=== PATIENT | male | born 1945 | race Caucasian/White ===

== ENCOUNTER 2022-05-05 10:41 | Inpatient (IN) ==
--- NOTE | 2022-04-07 14:12 | PAT Medication Instructions ---
Medication Instructions Date of Service April 07, 2022 Home Medications atorvastatin 80 mg tablet 80 mg PO HS calcium carbonate 600 mg-vitamin D3 5 mcg (200 unit) tablet 1 tab PO QAM cholecalciferol (vitamin D3) 25 mcg (1,000 unit) chewable tablet (Vitamin D3) 1,000 unit PO QAM donepezil 10 mg tablet 10 mg PO HS duloxetine 40 mg capsule,delayed release 80 mg PO QAM ferrous sulfate 325 mg (65 mg iron) tablet 325 mg PO BID furosemide 40 mg tablet 40 mg PO QAM lisinopril 5 mg tablet 5 mg PO QAM pantoprazole 40 mg tablet,delayed release 40 mg PO QAM prednisone 2.5 mg tablet 7.5 mg PO QAM rivaroxaban 20 mg tablet (Xarelto) 20 mg PO QAM tramadol 50 mg tablet 50 mg PO BID ASK your prescriber and surgeon rivaroxaban 20 mg tablet (Xarelto) 20 mg PO QAM DO NOT take the morning of surgery calcium carbonate 600 mg-vitamin D3 5 mcg (200 unit) tablet 1 tab PO QAM cholecalciferol (vitamin D3) 25 mcg (1,000 unit) chewable tablet (Vitamin D3) 1,000 unit PO QAM ferrous sulfate 325 mg (65 mg iron) tablet 325 mg PO BID furosemide 40 mg tablet 40 mg PO QAM lisinopril 5 mg tablet 5 mg PO QAM Take morning of surgery With a small sip of water, OTHERWISE NOTHING TO EAT OR DRINK AFTER MIDNIGHT: duloxetine 40 mg capsule,delayed release 80 mg PO QAM pantoprazole 40 mg tablet,delayed release 40 mg PO QAM prednisone 2.5 mg tablet 7.5 mg PO QAM tramadol 50 mg tablet 50 mg PO BID Take evening before surgery atorvastatin 80 mg tablet 80 mg PO HS donepezil 10 mg tablet 10 mg PO HS ferrous sulfate 325 mg (65 mg iron) tablet 325 mg PO BID tramadol 50 mg tablet 50 mg PO BID Other Notes If you have any questions please call us at [phone] or [phone] or [phone] or [phone]
--- NOTE | 2022-04-13 10:39 | Anesthesiology Consultation ---
Date of Service April 13, 2022 Assessment & Plan (1) Encounter for pre-operative examination: - PAT testing will be faxed to PCP for continuity of care and review for upcoming clearance appointment. - potential difficult intubation: s/p cervical fusion. - awaiting surgeon ordered medical clearance. - COVID screening: Per assessment on 04/13/2022: Travel screen negative, no known COVID-19 positive contacts or current COVID-19 related symptoms in past 2 weeks. Pt vaccinated. Surgeon arranging preop COVID testing, scheduled 05/03/2022. Awaiting results. Chart Review Chart Review: Pending: Refer to Additional Notes / Consult section and Patient seen in Pre Admission Testing Teaching & Discussion Pre-Anesthesia Teaching/Discussion Notes: Instructed NPO after midnight before surgery, except medications with 15 cc of water. Medication instructions provided according to the PAT guidelines. History Surgery Operation Date: 05/05/22 10:20 Proposed Procedures p L3-S1 Decompression and Fusion; Neuro Monitoring - Ronan Becerril DO Height/Weight Height: 5 ft 7 in Weight: 82.2 kg Allergies Allergy/AdvReac Type Severity Reaction Status Date / Time celecoxib [From Celebrex] AdvReac Mild bleeding Verified 04/07/22 12:17 Medications Home Medications Medication Instructions Recorded Confirmed Last Taken atorvastatin 80 mg tablet 80 mg PO HS 04/07/22 04/07/22 Unknown calcium carbonate 600 mg-vitamin 1 tab PO QAM 04/07/22 04/07/22 Unknown D3 5 mcg (200 unit) tablet cholecalciferol (vitamin D3) 25 1,000 unit PO QAM 04/07/22 04/07/22 Unknown mcg (1,000 unit) chewable tablet (Vitamin D3) donepezil 10 mg tablet 10 mg PO HS 04/07/22 04/07/22 Unknown duloxetine 40 mg capsule,delayed 80 mg PO QAM 04/07/22 04/07/22 Unknown release ferrous sulfate 325 mg (65 mg 325 mg PO BID 04/07/22 04/07/22 Unknown iron) tablet furosemide 40 mg tablet 40 mg PO QAM 04/07/22 04/07/22 Unknown lisinopril 5 mg tablet 5 mg PO QAM 04/07/22 04/07/22 Unknown pantoprazole 40 mg tablet,delayed 40 mg PO QAM 04/07/22 04/07/22 Unknown release prednisone 2.5 mg tablet 7.5 mg PO QAM 04/07/22 04/07/22 Unknown rivaroxaban 20 mg tablet (Xarelto) 20 mg PO QAM 04/07/22 04/07/22 Unknown tramadol 50 mg tablet 50 mg PO BID 04/07/22 04/07/22 Unknown Past Medical History Medical History (Updated 04/13/22 @ 10:47 by Roopa Rubi PA-C) Anemia blood transfusion 02/2022 and is getting 5 sessions of iron infusions. 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 Exercise / Class Metabolic Activity III < 4 Walking/Shop/Light housework (denies CP or SOB, ambulates with cane) Past Family History Family History (Updated 04/07/22 @ 12:37 by Klarissa Bernal) Sister Diabetes Father Colorectal cancer Past Surgical History Surgical History (Updated 04/13/22 @ 10:36 by Roopa Rubi PA-C) History of arthroplasty of left shoulder History of bilateral knee arthroplasty History of cholecystectomy History of colonoscopy History of decompression of both ulnar nerves History of open reduction and internal fixation (ORIF) procedure right lower leg History of removal of cyst tumor removed in right ear Hx of carpal tunnel repair right Hx of spinal fusion C4-C5 Hx of tooth extraction Past Anesthesia History No Hx of Anesthesia Complications and No Family Hx of Anesthesia Complications History of PONV No Hx of Motion Sickness and History of PONV (he notes significant improvement s/p cholecystectomy) Social History Smoking Status: Former smoker Do You Dip or Chew Tobacco: No Smoking End Date: 20 years ago Hx Alcohol Use: No Hx Substance Use: No substance use type: does not use Review of Systems Patient denies chest pain, shortness of breath, dyspnea on exertion, fever, chills, cough, wheezing, or palpitations. Physical Exam Vital Signs Vitals BP 142/75 P 61 TEMP 98.3 SP02 99% on RA RESP 17 Physical Limited cervical extension (chronic per pt) TMD 3.5 finger breaths Mallampati Score 2 Dentition: edentulous, full upper and lower dentures Lungs: normal respiratory effort. Clear throughout to auscultation, no adventitious breath sounds Cardiac: regular rate and rhythm, no murmurs noted Carotid arteries: negative bruit bilat Lab Results Anesthesia Preop Results Results Anesthesia Widget: WBC 5.76 K/uL (4.8-10.8) 04/13/22 Hgb 10.4 g/dL (14.0-18.0) L 04/13/22 Hct 33.4 % (42-52) L 04/13/22 Plt 368 K/uL (130-400) 04/13/22 Na 137 mmol/L (136-145) 04/13/22 K 3.8 mmol/L (3.5-5.1) 04/13/22 Cl 101 mmol/L (98-107) 04/13/22 CO2 29 mmol/L (21-32) 04/13/22 BUN 21 mg/dl (6-23) 04/13/22 Creat 1.28 mg/dl (0.6-1.4) 04/13/22 Glucose Level 101 mg/dl (70-99(Fasting)) H 04/13/22 PT 10.6 Seconds (9.0-12.0) 04/13/22 PTT 27.5 Seconds (21.0-31.0) 04/13/22 INR 1.0 (0.9-1.1) 04/13/22 Urine Color Yellow 04/13/22 Urine Appearance Clear (Clear) 04/13/22 Urine pH 7.5 (4.5-7.5) 04/13/22 Urine Specific [place] 1.008 (1.000-1.030) 04/13/22 Urine Protein 1+ (Negative) H 04/13/22 Urine Glucose (UA) Negative (Negative) 04/13/22 Urine Ketones Negative (Negative) 04/13/22 Urine Blood Negative (Negative) 04/13/22 Urine Nitrite Negative (Negative) 04/13/22 Urine Bilirubin Negative (Negative) 04/13/22 Urine Urobilinogen Negative (Negative) 04/13/22 Urine Leukocyte Esterase Negative (Negative) 04/13/22 Urine WBC (Auto) 5-10 /hpf (0-5) H 04/13/22 Urine RBC (Auto) 0-4 /hpf (0-4) 04/13/22 Urine Hyaline Casts (Auto) 1-5 /lpf (0-5) 04/13/22 Urine Epithelial Cells (Auto) >30 /lpf (0-5) H 04/13/22 Urine Bacteria (Auto) Negative (Negative) 04/13/22 Blood Type A Positive 04/13/22 Antibody Screen NEGATIVE 04/13/22 Testing Electrocardiogram Date: 04/13/22 NSR with sinus arrhythmia, rate 66 bpm Left axis deviation Prolonged QT Chest X-Ray Date: 04/13/22 Left shoulder reverse arthroplasties noted. Calcified aortic knob is seen. The lungs are clear. No evidence of pleural effusion or pneumothorax. IMPRESSION: No acute chest disease. Stress Test Date: 02/23/22 Pharmacologic EF 55% Normal nuclear part of lexiscan nuclear stress test No evidence of ischemia or infarction Normal LVEF and wall motion Low risk scan MPHR not included on report Pre-testing dx: CP, SOB and dizziness
[~2022-05-05 10:41] MED LIST: ACETAMINOPHEN 500 MG TAB PO SCH; CeleBREX 200 MG CAP PO SCH; DEXAMETHASONE SOD INJ 4 MG/ML VIAL ONE; GABAPENTIN 300 MG CAP PO SCH; GLYCOPYRROLATE 0.2 MG/ML VIAL ONE; HYDROmorphone INJ 2 MG/ML SYR/VIAL ONE; LARYING-O-JET KIT (LTA) ONE; LIDOCAINE 2% MPF LOCAL 5 ML VIAL INFIL ONE; LR 15ML/HR IV SCH; MIDAZOLAM HCL 1 MG/ML 2ML VIAL ONE; NEOSTIGMINE METHYLSULFATE 1 MG/ML 10ML VIAL ONE; ONDANSETRON INJ 2 MG/ML 2 ML VIAL ONE; PROPOFOL IV EMULSION 10 MG/ML 20 ML VIAL IV ONE; ceFAZolin 2000MG 2,000 MG/15 ML SYR IV SCH
--- NOTE | 2022-05-05 11:35 | History & Physical Report ---
Date of Service May 05, 2022 Assessment & Plan (1) Neurogenic claudication due to lumbar spinal stenosis: Plan: L3-S1 decompression and fusion History of Present Illness Chief Complaint: Back and leg pain Primary Care Provider: Kirill Torres DO This is a 76-year-old male who presents with chronic persistent back and leg pain. Failing course of nonoperative care is here for surgical intervention. Allergies Allergy/AdvReac Type Severity Reaction Status Date / Time celecoxib [From Celebrex] AdvReac Mild bleeding Verified 05/05/22 11:16 Home Medications Medication Instructions Recorded Confirmed Type atorvastatin 80 mg tablet 80 mg PO HS 04/07/22 05/05/22 History calcium carbonate 600 mg-vitamin 1 tab PO QAM 04/07/22 05/05/22 History D3 5 mcg (200 unit) tablet cholecalciferol (vitamin D3) 25 1,000 unit PO QAM 04/07/22 05/05/22 History mcg (1,000 unit) chewable tablet (Vitamin D3) donepezil 10 mg tablet (Aricept) 10 mg PO HS 04/07/22 05/05/22 History duloxetine 40 mg capsule,delayed 80 mg PO QAM 04/07/22 05/05/22 History release ferrous sulfate 325 mg (65 mg 325 mg PO BID 04/07/22 05/05/22 History iron) tablet furosemide 40 mg tablet (Lasix) 40 mg PO QAM 04/07/22 05/05/22 History lisinopril 5 mg tablet 5 mg PO QAM 04/07/22 05/05/22 History pantoprazole 40 mg tablet,delayed 40 mg PO QAM 04/07/22 05/05/22 History release (Protonix) prednisone 2.5 mg tablet 7.5 mg PO QAM 04/07/22 05/05/22 History rivaroxaban 20 mg tablet (Xarelto) 20 mg PO QAM 04/07/22 05/05/22 History tramadol 50 mg tablet 50 mg PO BID 04/07/22 05/05/22 History Past Med/Surg History Medical History (Updated 05/05/22 @ 11:35 by Ronan Becerril DO) Anemia blood transfusion 02/2022 and is getting 5 sessions of iron infusions. 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 no hearing aids History of hepatitis 1967 History of malaria Hyperlipidemia Hypertension controlled, stable per pt Potential difficult intubation on preoperative anesthesia assessment s/p cervical fusion Sleep apnea no cpap Stroke 08/2021 "mini stroke" - arm went numb, couldn't talk - [facility] x3 days - monitored and sent home - currently on xarelto - no current issues Surgical History History of arthroplasty of left shoulder History of bilateral knee arthroplasty History of cholecystectomy History of colonoscopy History of decompression of both ulnar nerves History of open reduction and internal fixation (ORIF) procedure right lower leg History of removal of cyst tumor removed in right ear Hx of carpal tunnel repair right Hx of spinal fusion C4-C5 Hx of tooth extraction Family History (Updated 04/07/22 @ 12:37 by Klarissa Bernal) Sister Diabetes Father Colorectal cancer Social History Smoking Status: Former smoker Smoking End Date: 20 years ago; Second Hand Exposure: No; Do You Dip or Chew Tobacco: No; Tobacco Cessation Education Requested by Patient: No Hx Alcohol Use: No Hx Substance Use: No Preferred Language: Hong [place]er Communication Ability: Effective Oracle Data Warehouse Developer Required: No Beliefs That Will Affect Care: None Current Living Situation: Spouse Other Information That Helps Us Care for You: No Feels Safe at Home: Yes Safety Concerns: Feels Safe At This Time Assistive Devices: Cane, Denture - Upper and Glasses Physical Exam Physical Exam: Patient is alert and oriented Heart regular rhythm Lungs clear Results & Data Results & Data ([facility]) Vital Signs (Past 12 Hours) Vital Signs Temp Pulse Resp BP Pulse Ox O2 Del Method 05/05/22 11:20 36.7 C 97 H 18 158/98 H 98 Room Air 05/05/22 11:20 Room Air
--- NOTE | 2022-05-05 11:35 | History & Physical Bridge Note ---
Date of Service May 05, 2022 History & Physical Bridge Note I have examined the patient, reviewed the History & Physical and in the interval since the performance of the History & Physical I have noted the following changes of clinical significance: no changes noted
[2022-05-05] MEDS ORDERED: BUPIVACAINE/EPINEPHRINE 0.25% 1:200,000 30 ML VIAL ONE (11:52)
[2022-05-05] MEDS ORDERED: ceFAZolin 330 MG/ML 1 GM VIAL ONE (11:52)
[2022-05-05] MEDS ORDERED: ATROPINE SULFATE 0.1 MG/ML 10ML SYR IV PRN (12:04)
[2022-05-05] MEDS ORDERED: ONDANSETRON INJ 2 MG/ML 2 ML VIAL IV PRN ×2 (12:04→16:26)
[2022-05-05] MEDS ORDERED: ePHEDrine sulfate 50 MG/ML AMP IV PRN (12:04)
[2022-05-05] MEDS ORDERED: ePHEDrine sulfate 50 MG/ML SYR ONE (12:32)
[2022-05-05] MEDS ORDERED: ESMOLOL HCL INJ 10 MG/ML 10ML VIAL IV ONE (12:32)
[2022-05-05] MEDS ORDERED: PHENYLEPHRINE HCL 10 MG/ML VIAL ONE (12:33)
[2022-05-05] MEDS ORDERED: ONDANSETRON INJ 2 MG/ML 2 ML VIAL ONE (12:52)
[2022-05-05] MEDS ORDERED: GLYCOPYRROLATE 0.2 MG/ML VIAL ONE (12:53)
[2022-05-05] MEDS ORDERED: FLOSEAL HEMOSTATIC MATRIX 10ML TOP ONE (12:59)
--- NOTE | 2022-05-05 14:43 | Operative Report ---
Post Operative Report Pre & Post Diagnosis Operation Date: 05/05/22 12:00 Pre-Op Diagnosis: Spinal Stenosis of Lumbar Region with Radiculopathy Post-Op Diagnosis: Spinal Stenosis of Lumbar Region with Radiculopathy I identified the patient and participated in the time-out.: Yes Procedure Operation Date: 05/05/22 12:00 Actual Procedures #1 lumbar decompression with bilateral medial facetectomies and foraminotomies L2-L3, L3-L4, L4-5 and L5-S1. #2 posterior spinal fusion L3-L4, L4-5 and L5-S1. #3 placement posterior segmental instrumentation L3-S1. #4 interbody fusion L3-L4 and L5-S1. #5 placement of Spira 13 x 26 mm cage at L3-L4 and 15 x 26 mm cage at L5-S1. #6 placement locally harvested morselized autograft in the posterior gutters per #7 placement of I factor combined with V toss in the interbody space and posterior lateral gutters. Surgeon Ronan Becerril, DO Field Superintendent Samantha Rosas Estimated Blood Loss 400 Findings See Below The patient is 5 foot 7 weighs over 96 kg with a BMI in excess of 33. Patient's body habitus did contribute to significant technical difficulty required to be retractors longer instruments in order to perform his procedure. This at least 50% increased operative time. Specimens None Indications This is a 76-year-old male who presents with above-mentioned diagnosis after failing course of nonoperative care is here for the above-mentioned procedure. Description of Procedure Patient was met with identified informed consent obtained. Patient was then taken to the operative suite underwent intubation and placed in a prone position the [place] table top Zeferino frame. All bony prominences well-padded eyes i nspected to ensure no external pressure placed upon. This point the lumbar spine was prepped and draped normal sterile fashion. Sharp dissection with assistance of Bovie cautery was then performed down to and exposing the lamina transverse processes of L3-L4-L5 and sacral ala bilaterally. From caudal to cephalad fashion complete laminectomy L5 L4 L3 and partial laminectomy of L2 was performed including bilateral medial facetectomies and foraminotomies addressing severe spinal stenosis. Pedicle screws then placed in L3-L4-L5 and S1 levels bilaterally with assistance of fluoroscopy and the properly sized carlos placed. By way of a transforaminal approach on the right to complete discectomy of L5-S1 was performed endplates curetted to subcortical bleeding bone and a 15 x 26 mm spiral cage with I factor tapped in position. Then proceeded to L3-L4 and again by way of a transforaminal portion of right complete discectomy performed endplates curetted to subcortical bleeding bone and a 13 x 26 mm spiral cage with I factor tapped in position. The rods were then locked in final position bilaterally. The transverse processes of L3-L4-L5 and sacral ala burred to subcortical bleeding bone. I factor model V toss and locally harvested morselized autograft was then placed in the posterior gutters. 15 round COLLIN drain inserted. The incision was then closed with 1 Vicryl to fascia 2-0 Vicryl subcutaneously and 4 Monocryl for final skin closure. Steri-Strip sterile dressings placed. Patient waken taken PACU stable condition. Please note spinal cord monitoring was utilized at the procedure no changes noted. Lastly Samantha Rosas was present out the entire procedure involved the patient positioning complex portions of the surgery and final skin closure. I attest to the content of the Intraoperative Record and any orders documented therein. Any exceptions are noted below.
--- NOTE | 2022-05-05 14:59 | Fluoroscopy Report ---
FL lumbar spine 2-3V HISTORY: 76 years-old Male L3-S1 DFI status post fusion of the lumbar spine COMPARISON: None TECHNIQUE: 2 views of the lumbar spine were obtained utilizing 36.5 seconds fluoroscopy time FINDINGS: Posterior interbody carlos and screw fusion hardware is noted at what appears to be the L3-S1 levels wit h discectomy at L3-L4 and L5-S1. The hardware appears intact. Alignment appears satisfactory. No acut e fracture or unexpected opaque foreign body. IMPRESSION: Fluoroscopic assistance as above. ACT 112: Negative or not required by law. The above report was generated using voice recognition software. It may contain grammatical, syntax o r spelling errors. Electronically signed by: Ren Beltran M.D. 05/05/2022 2:57 PM
[2022-05-05] MEDS: fentaNYL citrate 100 MCG/2 ML VIAL IV PRN ×2 (15:13→15:19)
[2022-05-05] MEDS ORDERED: METOPROLOL TARTRATE 1 MG/ML VIAL IV STA (15:25)
[2022-05-05] MEDS ORDERED: METOPROLOL TARTRATE 1 MG/ML VIAL IV ONE (15:26)
[2022-05-05] MEDS: HYDROmorphone INJ 2 MG/ML SYR/VIAL IV PRN ×4 (15:36→15:53)
--- NOTE | 2022-05-05 15:59 | Anesthesiology Progress Note ---
Date of Service May 05, 2022 Anesthesia Post Procedure Vital Signs Vital Signs: Temp Pulse Pulse Pulse Resp BP BP 05/05/22 15:30 78 20 174/100 H 05/05/22 15:50 77 15 159/81 H 05/05/22 15:40 76 18 158/89 H 05/05/22 15:20 110 H 15 162/114 H 05/05/22 15:30 109 H 162/114 H 05/05/22 15:10 105 H 17 163/107 H 05/05/22 15:01 36.2 C L 99 H 13 176/100 H 05/05/22 11:20 36.7 C 97 H 18 158/98 H 05/05/22 11:20 Pulse Ox O2 Del Method O2 Flow Rate 05/05/22 15:30 98 Room Air 05/05/22 15:50 100 Room Air 05/05/22 15:40 100 Room Air 05/05/22 15:20 100 Oxymask 10 05/05/22 15:30 05/05/22 15:10 100 Oxymask 10 05/05/22 15:01 99 Oxymask 10 05/05/22 11:20 98 Room Air 05/05/22 11:20 Room Air Pain Intensity Back: Pain Intensity: 3 Transfer of Care Handoff Completed per policy Notes Mental Status: alert / awake / arousable Patient Amnestic to Procedure: Yes Nausea / Vomiting: adequately controlled Pain: adequately controlled Airway Patency, RR, SpO2: stable & adequate BP & HR: stable & adequate Hydration State: stable & adequate Anesthetic Complications: no major complications apparent and Pt Satisfied with anesthetic care Notes: The patient was signed out to me by Dr. Aden after he was in PACU. The patient was tachycardic and hypertensive initially in PACU but was treated with metoprolol and opioids and his vital signs are now stable. He has a small amount of surgical site pain but it is now much more manageable.
[2022-05-05] MEDS ORDERED: ALUMINUM/MAGNESIUM SUSP 30 ML UDC PO PRN (16:26)
[2022-05-05] MEDS ORDERED: NALOXONE HCL 0.4 MG/1 ML VIAL/CARP IV PRN (16:26)
[2022-05-05] MEDS ORDERED: METOCLOPRAMIDE HCL INJ 5 MG/ML 2 ML VIAL IV PRN (16:26)
[2022-05-05] MEDS ORDERED: ACETAMINOPHEN 500 MG TAB PO PRN (16:26)
[2022-05-05] MEDS ORDERED: LORazepam 0.5 MG TAB PO PRN (16:26)
[2022-05-05] MEDS ORDERED: hydrOXYzine HCl 25 MG TAB PO PRN (16:26)
[2022-05-05] MEDS ORDERED: MAGNESIUM HYDROXIDE SUSP 30 ML UDC PO PRN (16:26)
[2022-05-05] MEDS ORDERED: FAMOTIDINE 20 MG TAB PO PRN (16:26)
[2022-05-05] MEDS ORDERED: LORazepam 0.5 MG in SYRINGE 0.25 ML IV PRN (16:26)
[2022-05-05] MEDS ORDERED: SOD PHOSPHATE/SOD BIPHOSPHATE ENEMA 132 ML BTL PR PRN (16:26)
[2022-05-05] MEDS ORDERED: ACETAMINOPHEN 1,000 MG/100 ML VIAL IV PRN (16:26)
[2022-05-05] MEDS ORDERED: ONDANSETRON 4 MG OD TAB PO PRN (16:26)
[2022-05-05] MEDS ORDERED: PROMETHAZINE HCL 12.5 MG in SODIUM CHLORIDE 0.9% 50 ML IV PRN (16:26)
[2022-05-05] MEDS ORDERED: bisacodyL 10 MG SUPP PR PRN (16:26)
[2022-05-05] MEDS ORDERED: HYDROmorphone INJ 0.5 MG/0.5 ML SYR IV PRN (16:26)
[2022-05-05] MEDS ORDERED: HYDROmorphone INJ 1 MG/ML SYRINGE IV PRN (16:26)
[2022-05-05] MEDS ORDERED: diphenhydrAMINE Capsule 25 MG CAP PO PRN (16:26)
[2022-05-05] MEDS: LACTATED RINGER'S 1,000 ML IV SCH (16:30)
--- NOTE | 2022-05-05 16:54 | Consultation ---
Date of Consultation May 05, 2022 Assessment & Plan (1) Status post lumbar surgery: (2) Neurogenic claudication due to lumbar spinal stenosis: Post op day# 0 S/P L3-S1 decompression and fusion by Dr Jerrica DA SILVA#400ml -pain management per ortho -wound management per ortho -PT/OT as appropriate -DVT prophylaxis per ortho -incentive spirometry -monitor H&H for acute blood loss anemia; pre-op Hgb: 10.4 (3) Hypertension: Stable -Hold lisinopril, lasix and reassess tomorrow (4) Hyperlipidemia: -Continue atorvastatin (5) Anemia: Chronic iron deficiency anemia Pre-op Hgb: 10.4 On oral iron and receives IV iron. Last IV iron reported 2-3 weeks ago. Patient reports had workup outpatient and EGD showed nonbleeding gastric ulcer, and unremarkable colonoscopy -Monitor H&H -Continue oral ferrous sulfate (6) Stroke: History TIA -On Xarelto. Has been held for surgery -Resume Xarelto when able per ortho spine (7) Leg edema: Chronic BLE edema On home lasix. -Hold lasix and reassess tomorrow (8) GERD (gastroesophageal reflux disease): -Continue PPI (9) Sleep apnea: -Does not use CPAP (10) Dementia: -Continue donepezil DVT Prophylaxis -SCDs per ortho Disposition per primary service Follows with Dr Kirill Torres in [place] for routine care Pt was seen and care coordinated with Dr Nassar. See addendum Thank you for this consultation. We will follow the patient with you during their hospital stay. You can reach a member of the [facility] Hospitalist Team 02/05 via [employer] Attending Addendum: care coordinated with BULL Goyal please refer to her notes for full details, I agree with her notes patient seen and examined, records reviewed by myself as well on exam, patient seen resting in bed, sitting up comfortable minimal hip pain no other symptoms s/p Lumbar spine surgery - stable overall HTN - continue Lisinopril History of CVA - resume Xarelto once hemostasis stable per Ortho other diagnoses and plan of care as per BULL Nassar MD History of Present Illness Requesting Physician: Dr Becerril Reason for Consultation: Post op medical management Attending Physician: Ronan Becerril DO History of Present Illness Patient is 76y/o M with PMH HTN, HLD, TIA, chronic iron deficiency anemia, BLE edema, GERD, EILEEN, dementia seen in medical consultation s/p L3-S1 decompression and fusion today by Dr. Becerril. Postop patient reports some pain however reports no improvement after medicated. Has Dc catheter in place. Reports last BM today. Reports mouth feels dry post- op. Denies nausea, vomiting, dizziness, chest pain, shortness of breath. Denies fever/chills, diaphoresis, OROSCO, vision changes, neck pain, cough, choking, otalgia, rhinorrhea, abdominal pain, paresthesias, extremity weakness, extremity edema, rashes, urinary symptoms. Allergies Allergy/AdvReac Type Severity Reaction Status Date / Time celecoxib [From Celebrex] AdvReac Mild bleeding Verified 05/05/22 11:16 Home Medications Medication Instructions Recorded Confirmed Type atorvastatin 80 mg tablet 80 mg PO HS 04/07/22 05/05/22 History calcium carbonate 600 mg-vitamin 1 tab PO QAM 04/07/22 05/05/22 History D3 5 mcg (200 unit) tablet cholecalciferol (vitamin D3) 25 1,000 unit PO QAM 04/07/22 05/05/22 History mcg (1,000 unit) chewable tablet (Vitamin D3) donepezil 10 mg tablet (Aricept) 10 mg PO HS 04/07/22 05/05/22 History duloxetine 40 mg capsule,delayed 80 mg PO QAM 04/07/22 05/05/22 History release ferrous sulfate 325 mg (65 mg 325 mg PO BID 04/07/22 05/05/22 History iron) tablet furosemide 40 mg tablet (Lasix) 40 mg PO QAM 04/07/22 05/05/22 History lisinopril 5 mg tablet 5 mg PO QAM 04/07/22 05/05/22 History pantoprazole 40 mg tablet,delayed 40 mg PO QAM 04/07/22 05/05/22 History release (Protonix) prednisone 2.5 mg tablet 7.5 mg PO QAM 04/07/22 05/05/22 History rivaroxaban 20 mg tablet (Xarelto) 20 mg PO QAM 04/07/22 05/05/22 History tramadol 50 mg tablet 50 mg PO BID 04/07/22 05/05/22 History Patient History Medical History (Updated 05/05/22 @ 17:23 by Sho Ulrich PA-C) Anemia blood transfusion 02/2022 and is getting 5 sessions of iron infusions. 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 History of hepatitis 1966 History of malaria Hyperlipidemia Hypertension controlled, stable per pt Leg edema Potential difficult intubation on preoperative anesthesia assessment s/p cervical fusion Sleep apnea no cpap Stroke 08/2021 "mini stroke" - arm went numb, couldn't talk - [facility] x3 days - monitored and sent home - currently on xarelto - no current issues Surgical History (Updated 05/05/22 @ 17:23 by Sho Ulrich PA-C) History of arthroplasty of left shoulder History of bilateral knee arthroplasty History of cholecystectomy History of colonoscopy History of decompression of both ulnar nerves History of open reduction and internal fixation (ORIF) procedure right lower leg History of removal of cyst tumor removed in right ear Hx of carpal tunnel repair right Hx of spinal fusion C4-C5 Hx of tooth extraction Family History Sister Diabetes Father Colorectal cancer Social History Smoking Status: Former smoker Smoking End Date: 20 years ago; Second Hand Exposure: No; Do You Dip or Chew Tobacco: No; Tobacco Cessation Education Requested by Patient: No Hx Alcohol Use: No Hx Substance Use: No Preferred Language: Hungarian Communication Ability: Effective Disease Control Inspector Required: No Beliefs That Will Affect Care: None Current Living Situation: Spouse Other Information That Helps Us Care for You: No Feels Safe at Home: Yes Safety Concerns: Feels Safe At This Time Assistive Devices: Cane, Denture - Upper and Glasses Review of Systems Review of Systems: All systems reviewed & are unremarkable except as noted in HPI & below Physical Exam Physical Exam: General: no distress, WDWN Head: normocephalic, atraumatic Eyes: conjunctiva non-injected, anicteric ENT: normal inspection external ears, nose, mucous membranes dry Neck: supple, trachea midline Lungs: clear, no respiratory distress, no wheezing/rhonchi/rales CV: RRR, no murmur, no pretibial edema Abd: normal BS, soft, non-tender Back: surgical dressing dry, +COLLIN drain in place with small amount of serosanguineous drainage Ext: no cyanosis, no calf tenderness; pedal pushes and pulls intact bilaterally, sensation to light touch intact, distal pulses intact Neuro: A&O x 3, no focal deficits noted, normal affect Skin: warm, dry Results & Data ([facility]) Vital Signs (Past 12 Hours) Vital Signs Temp Pulse Pulse Pulse Resp BP BP 05/05/22 16:43 05/05/22 16:30 36.7 C 88 16 145/82 H 05/05/22 16:10 75 16 145/93 H 05/05/22 16:00 36.5 C 78 16 139/84 05/05/22 15:30 78 20 174/100 H 05/05/22 15:50 77 15 159/81 H 05/05/22 15:40 76 18 158/89 H 05/05/22 15:20 110 H 15 162/114 H 05/05/22 15:30 109 H 162/114 H 05/05/22 15:10 105 H 17 163/107 H 05/05/22 15:01 36.2 C L 99 H 13 176/100 H 05/05/22 11:20 36.7 C 97 H 18 158/98 H 05/05/22 11:20 Pulse Ox O2 Del Method O2 Flow Rate 05/05/22 16:43 Nasal Cannula 3 05/05/22 16:30 100 Nasal Cannula 3 05/05/22 16:10 97 Nasal Cannula 3 05/05/22 16:00 99 Room Air 05/05/22 15:30 98 Room Air 05/05/22 15:50 100 Room Air 05/05/22 15:40 100 Room Air 05/05/22 15:20 100 Oxymask 10 05/05/22 15:30 05/05/22 15:10 100 Oxymask 10 05/05/22 15:01 99 Oxymask 10 05/05/22 11:20 98 Room Air 05/05/22 11:20 Room Air
[2022-05-05] MEDS: dexAMETHasone 6 MG in SYRINGE 0 ML IV SCH (17:43)
[2022-05-05] MEDS: FERROUS SULFATE 325 MG TAB PO SCH (17:43)
[2022-05-05] MEDS: oxyCODONE HCL IR 5 MG TAB (IMMEDIATE RELEASE) PO PRN (19:41)
[2022-05-05] MEDS ORDERED: lisinopril 5 MG TAB PO ONE (20:00)
[2022-05-05] MEDS: ceFAZolin 2000MG 2,000 MG/15 ML SYR IV SCH (21:20)
[2022-05-05] MEDS: ATORVASTATIN 40 MG TAB PO SCH (21:20)
[2022-05-05] MEDS: DOCUSATE SODIUM/SENNA 50/8.6MG TAB PO SCH (21:20)
[2022-05-05] MEDS: DONEPEZIL HCL 10 MG TAB PO SCH (21:20)
[2022-05-05] MEDS: traMADol HCL 50 MG TABLET PO PRN (22:52)
[2022-05-06] MEDS: dexAMETHasone 6 MG in SYRINGE 0 ML IV SCH ×2 (00:30→07:59)
[2022-05-06] MEDS: oxyCODONE HCL IR 5 MG TAB (IMMEDIATE RELEASE) PO PRN ×3 (00:31→17:04)
[2022-05-06] MEDS: traMADol HCL 50 MG TABLET PO PRN ×2 (05:58→20:02)
[2022-05-06] MEDS: POLYETHYLENE (MIRALAX) 17 GM PACK PO SCH ×3 (05:59→17:04)
[2022-05-06] MEDS: ceFAZolin 2000MG 2,000 MG/15 ML SYR IV SCH (06:09)
[2022-05-06 06:25] LABS: Hematocrit (blood only) 30.5 % (40.1-51.0); Hemoglobin 9.8 g/dl (14.0-18.0); Mean Corpuscular Hemoglobin 26.9 pg (25.0-34.0); Mean Corpuscular Hgb Conc 32.1 g/dL (32.0-36.0); Mean Corpuscular Volume 83.8 fL (80.0-100.0); Mean Platelet Volume 9.8 fL (9.4-12.4); Platelet Count 325 K/uL (130-400); RDW Coefficient of Variation 15.5 % (11.5-14.5); RDW Standard Deviation 47.5 fL (36.4-46.3); Red Blood Count 3.64 M/uL (4.63-6.08); White Blood Count 10.23 K/ul (4.8-10.8)
[2022-05-06 06:57] LABS: BUN Creatinine Ratio 14.4 (10-20); Calcium 8.6 mg/dl (8.5-10.1); Creatinine Clr Calc Pharmacy 46.2 ml/min; Est GFR (African American) 50.8 ml/min; Est GFR (Non-African American) 43.8 ml/min; Potassium 4.4 mmol/L (3.5-5.1)
[2022-05-06] MEDS: LACTATED RINGER'S 1,000 ML IV SCH (07:06)
[2022-05-06 07:08] LABS: Basophils # (auto) 0.01 K/uL (0-0.2); Basophils % (auto) 0.1 %; Immature Granulocytes # (auto) 0.05 K/uL (0.00-0.02); Immature Granulocytes % (auto) 0.5 %; Lymphocytes # (auto) 0.37 K/uL (1.2-3.4); Lymphocytes % (auto) 3.6 %; Monocytes # (auto) 0.26 K/uL (0.24-0.82); Monocytes % (auto) 2.5 %; Neutrophils # (auto) 9.54 K/uL (1.4-6.5); Neutrophils % (auto) 93.3 %; Ovalocytes 1+
[2022-05-06] MEDS: DULoxetine HCL 20 MG CAP PO SCH (07:59)
[2022-05-06] MEDS: CHOLECALCIFEROL 1,000 UNITS 25 MCG TAB PO SCH (07:59)
[2022-05-06] MEDS: PANTOprazole 40 MG TAB PO SCH (07:59)
[2022-05-06] MEDS: FERROUS SULFATE 325 MG TAB PO SCH ×2 (07:59→17:04)
[2022-05-06] MEDS ORDERED: lisinopril 5 MG TAB PO SCH (09:00)
[2022-05-06] MEDS ORDERED: FUROSEMIDE 40 MG TAB PO SCH (09:00)
--- NOTE | 2022-05-06 09:50 | Orthopedic Progress Note ---
Date of Service May 06, 2022 Assessment & Plan (1) Neurogenic claudication due to lumbar spinal stenosis: Plan: At this time continue physical therapy monitor his COLLIN operatively discharge in the next day or so. Admission and Anticipated Discharge Date Admission Date: May 05, 2022 Subjective Back pain controlled leg pain improved Physical Exam Physical Exam: Patient is up and ambulating. Is good strength testing. Appears comfortable. Results & Data ([facility]) Vital Signs (Past 12 Hours) Vital Signs Temp Pulse Resp BP Pulse Ox O2 Del Method 05/06/22 07:40 36.6 C 84 16 114/61 97 05/06/22 03:18 37.1 C 74 18 147/80 H 96 Room Air 05/05/22 22:48 36.5 C 90 18 111/65 97 Room Air
[2022-05-06] MEDS: SODIUM CHLORIDE 0.9% 1000ML 1,000 ML IV SCH (10:51)
--- NOTE | 2022-05-06 18:24 | Hospitalist Progress Note ---
Date of Service May 06, 2022 Assessment & Plan (1) Status post lumbar surgery: Plan (1) Status post lumbar surgery: (2) Neurogenic claudication due to lumbar spinal stenosis: Post op day# 1 S/P L3-S1 decompression and fusion by Dr Jerrica DA SILVA#400ml, follow-up hemoglobin fairly close to baseline. PT OT/pain management/DVT prophylaxis per Ortho. Incentive spirometer. Patient reports pain under control and is working with physical therapy. #. ARNULFO over CKD stage III Patient's creatinine elevated today, likely secondary to decreased p.o. intake, Lasix held, patient on IV fluid, BMP in a.m., expect to improve. Patient reports eating good. #. Other chronic medical conditions: HTN, HLD, anemia, stroke, GERD, sleep apnea [does not use CPAP], dementia on donepezil, chronic BLE edema on home Lasix Continue with/resume home meds as and when appropriate. #. Chronic iron deficiency anemia, preop hemoglobin of 10.4, patient on oral iron and receives IV iron. 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 Patient does have a history of nonbleeding gastric ulcer on EGD and unremarkable colonoscopy. Continue with iron supplement. #. History of TIA, on Xarelto, held for surgery, resume when cleared per orthospine. #. DVT prophylaxis: Per orthospine. Admission and Anticipated Discharge Date Admission Date: May 05, 2022 Subjective Patient seen and examined at bedside as a follow-up of L3-S1 decompression and fusion by Dr. Becerril on 05/05/2022 for neurogenic claudication due to lumbar spinal stenosis. Next Patient was sitting up in bed, on room air, eating his lunch, almost finished his lunch at bedside exam. Patient reports improvement in his RLE radicular pain and low back pain, pain under control at operative site, reports moving gas but no bowel movement in the morning, reports feeling better, denies headache or dizziness or sore throat or fever or chills or other review of symptoms. Patient reports eating good. Physical Exam Physical Exam: GENERAL: Alert and oriented x3. NAD, on RA. HEENT: No pallor, no icterus. Pupils equal, round and reactive to light. Oral mucosa moist. NECK: No JVD, no neck masses. HEART: S1 and S2 heard. Regular rate and rhythm. No murmur, no gallop. RESPIRATORY SYSTEM: Normal AP diameter. No accessory muscle use. No wheezing, no crackles. ABDOMEN: Soft, bowel sounds present, nontender, no distention. CENTRAL NERVOUS SYSTEM: No facial droop. Speech is clear. Obeys simple commands. Moves extremities. EXTREMITIES: No edema, no erythema seen. Low back with clean dressing, COLLIN drain with moderate serosanguineous collection noted. Results & Data Results & Data ([facility]) Vital Signs (Past 12 Hours) Vital Signs Temp Pulse Resp BP Pulse Ox O2 Del Method 05/06/22 14:33 36.7 C 60 16 120/58 L 95 05/06/22 13:48 36.9 C 68 16 107/61 97 Room Air 05/06/22 07:40 36.6 C 84 16 114/61 97
[2022-05-06] MEDS: DOCUSATE SODIUM/SENNA 50/8.6MG TAB PO SCH (20:02)
[2022-05-06] MEDS: DONEPEZIL HCL 10 MG TAB PO SCH (20:02)
[2022-05-06] MEDS: ATORVASTATIN 40 MG TAB PO SCH (20:02)
[2022-05-07] MEDS: SODIUM CHLORIDE 0.9% 1000ML 1,000 ML IV SCH (00:24)
[2022-05-07] MEDS: POLYETHYLENE (MIRALAX) 17 GM PACK PO SCH ×3 (00:24→10:58)
[2022-05-07] MEDS: oxyCODONE HCL IR 5 MG TAB (IMMEDIATE RELEASE) PO PRN ×2 (00:32→15:37)
[2022-05-07 06:09] LABS: Hematocrit (blood only) 25.3 % (40.1-51.0); Hemoglobin 8.1 g/dl (14.0-18.0); Mean Corpuscular Hemoglobin 27.6 pg (25.0-34.0); Mean Corpuscular Volume 86.3 fL (80.0-100.0); Mean Platelet Volume 10.1 fL (9.4-12.4); Platelet Count 244 K/uL (130-400); RDW Coefficient of Variation 16.1 % (11.5-14.5); RDW Standard Deviation 50.8 fL (36.4-46.3); Red Blood Count 2.93 M/uL (4.63-6.08); White Blood Count 8.93 K/ul (4.8-10.8)
[2022-05-07 06:32] LABS: BUN Creatinine Ratio 20.3 (10-20); Creatinine Clr Calc Pharmacy 47.8 ml/min; Est GFR (African American) 52.9 ml/min; Est GFR (Non-African American) 45.6 ml/min; Phosphorus 2.8 mg/dl (2.5-4.9); Potassium 4.8 mmol/L (3.5-5.1)
[2022-05-07] MEDS: CHOLECALCIFEROL 1,000 UNITS 25 MCG TAB PO SCH (08:23)
[2022-05-07] MEDS: FERROUS SULFATE 325 MG TAB PO SCH (08:23)
[2022-05-07] MEDS: PANTOprazole 40 MG TAB PO SCH (08:23)
[2022-05-07] MEDS: DULoxetine HCL 20 MG CAP PO SCH (08:24)
[2022-05-07] MEDS ORDERED: dexAMETHasone 8 MG in SYRINGE 0 ML IV SCH (09:00)
--- NOTE | 2022-05-07 12:43 | Discharge Summary ---
Date of Service May 07, 2022 Admission HPI Per Admitting Provider This is a 76-year-old male who presents with chronic persistent back and leg pain. Failing course of nonoperative care is here for surgical intervention. Principal Diagnosis Lumbar spinal stenosis with neurogenic claudication Discharge Data Allergies Allergy/AdvReac Type Severity Reaction Status Date / Time celecoxib [From Celebrex] AdvReac Mild bleeding Verified 05/05/22 11:16 Consultations 05/05/22 16:26 Consult Hospitalist Routine Procedures Performed Operation Date: 05/05/22 12:00 Actual Procedures p L3-S1 Decompression and Fusion, Spinal Cord Monitoring(Not Applicable) - Ronan Becerril DO Ordered Studies 05/05/22 12:00 FL lumbar spine 2-3V Routine Hospital Course (1) Neurogenic claudication due to lumbar spinal stenosis: Patient 1 lumbar decompression fusion tolerated this well was taken to orthopedic for postoperative. Postop day 1 is up and ambulating. Postop day #2. COLLIN drain decreasing probably. Pain well controlled. Excellent strength testing. Separately discharged home. Discharge orders instructions from the chart for further review. Total Time Total Time Spent Total Time Spent (In Minutes): 20 minutes Discharge Plan Discharge Items Patient Disposition: Home - Self-Care Reason For Visit: Spinal Stenosis of Lumbar Region with Radiculopath Discharge Diagnosis: Lumbar spinal stenosis with neurogenic claudication Activity: As commented below Non-emergency contact: Primary Care Provider Call non-emergency contact if: you have any medication questions Follow-up/Referrals: Kirill Torres DO [Primary Care Provider] - Diet: Regular Addtl Attending Provider Instructions: ACTIVITY RECOMMENDATIONS: SELF CARE INSTRUCTIONS AFTER THORACIC/LUMBAR FUSIONS 1. You may walk to your tolerance. It is good exercise for your legs and back. Expect some back and intermittent leg aches and pains. 2. You may perform "counter-top" level activities (make a sandwich, segun with a project, etc.). 3. No bending or lifting of more than 10 pounds or back twisting of any nature (roll like a log when turning in bed). 4. You may ride in a car for 20-30 minutes at a time. No driving until after your first visit with your doctor. 5. Frequent changes of position and restricting sitting to 30 minutes at a time will help limit the amount of back spasms and stiffness you may experience. 6. You may discontinue the use of ambulatory aids (cane, crutches, etc.) once your strength and confidence allow. 7. You may insert molding operator the shower and let water strike your incision when you arrive home at least once daily. Do not take a tub bath, sit in a hot tub or go into a swimming pool until after your first recheck in the office. SPECIAL CARE INSTRUCTIONS: VERY IMPORTANT TO READ AND REVIEW A. Your surgical incision has been closed with a cosmetic suture under the skin that will dissolve in about 6 weeks. In 14 days, you can use a pair of clean scissors and cut the suture that is left outside of the skin at the ends of your incision. 1. The small skin tapes can be removed 7 days after surgery if they have not fallen off by that point. 2. You may keep the wound open to air as much as possible to promote healing after post-op day number 5 unless told otherwise by your doctor. 3. If you think the wound looks like it is becoming infected (redness or worsening drainage) and/or you are experiencing fever, chill or worsening back pain and muscle spasms, contact the office so that we may evaluate you as soon as possible. B. Complications are uncommon, but please contact us if you have any signs or symptoms of: 1. wound infection (fever higher than 102.5 degrees F, redness, separation of wound, drainage, or increasing pain from the incision) 2. blood clots in legs (pain, swelling, redness and warmth in legs) 3. urinary tract infection (fever higher than 102.5 degrees F, burning upon urination or increased frequency of urination) 4. nerve problems (inability to walk on your toes or heels, numbness, loss of bowel or bladder control) 5. any other symptoms that concern you C. Please call the office at if you have any concerns or questions about your operation or recovery. D. No smoking! Smoking drastically decreases the chance of a solid fusion. E. Do not take any anti-inflammatory medications (Indocin, Advil, Motrin, Aspirin, Naprosyn, etc.) as these may inhibit the chance of a solid fusion. Tylenol is okay to take for pain. MANAGING PAIN AFTER SPINAL SURGERY 1. Narcotic medication is intended for short-term use and will be provided for surgical pain. Surgical pain usually lasts for a period of 4-6 weeks. Narcotic medication includes Percocet, Vicodin, Darvocet, Tylenol #3 or Lortab. 2. Longer-term pain is more appropriately treated with non-narcotic medication such as Tylenol ES. 3. Muscle spasm is not appropriately treated with narcotics. Muscle relaxers such as Soma, Flexeril or Skelaxin can be used along with Tylenol ES. 4. Remember that we all live with some "aches and pains". This is not unusual or uncommon after an injury or as we get older. a. Back pain is expected and may include muscle spasms for 4 to 6 weeks after surgery. The pain should gradually improve. If the pain worsens for no apparent reason, please contact the office. b. Intermittent leg pain may also be experienced and should not be concerned about unless it worsens for no apparent reason. If so, please contact the office. 5. We will provide appropriate medication within the normal guidelines of their prescribed use. We will also be very cautious and aware of potential abuse and extended duration of patients' medication needs. a. Pain medications are for your comfort and to assist with sleep and rest so that the tissue can heal. They are not provided in order to return to normal activity and should not be used through the day. To do so or worsening pain at night can result from ongoing tissue damage and development of tolerance to the prescribed medicine. 6. Please allow 2-3 days to process refills. Prescriptions will not be mailed but must be picked up at the office. FOLLOW UP VISIT: Keep your scheduled follow-up appointment. Any questions, please call the office at . Pending Studies at Discharge: No Stand-Alone Forms: [facility], Smoking Cessation Medications and DC Order Prescriptions: New tramadol 50 mg tablet 50 mg PO Q6H PRN (Reason: pain, moderate) Qty: 30 0RF oxycodone 5 mg tablet 5 mg PO Q6H PRN (Reason: pain, severe) Qty: 30 0RF Continued furosemide [Lasix] 40 mg Tablet 40 mg PO QAM atorvastatin 80 mg Tablet 80 mg PO HS donepezil [Aricept] 10 mg Tablet 10 mg PO HS calcium carbonate-vitamin D3 600 mg-5 mcg (200 unit) Tablet 1 tab PO QAM ferrous sulfate 325 mg (65 mg iron) Tablet 325 mg PO BID cholecalciferol (vitamin D3) [Vitamin D3] 25 mcg (1,000 unit) Tablet,Chewable 1,000 unit PO QAM tramadol 50 mg Tablet 50 mg PO BID prednisone 2.5 mg Tablet 7.5 mg PO QAM pantoprazole [Protonix] 40 mg Tablet,Delayed Release (Dr/Ec) 40 mg PO QAM lisinopril 5 mg Tablet 5 mg PO QAM duloxetine 40 mg Capsule,Delayed Release(Dr/Ec) 80 mg PO QAM Discontinued Xarelto 20 mg Tablet 20 mg PO QAM Discharge Orders: Discharge Order (Routine); Ordered 05/07/22 Ordered By: Ronan Becerril Admission Data Admit Date/Time: 05/05/22 14:48 Attending Provider: Ronan Becerril Admit Provider: Ronan Becerril Primary Care Provider: Kirill Torres Other Providers: Tatyana Curtis ; Anatoliy Quinn
--- NOTE | 2022-05-07 15:25 | Hospitalist Progress Note ---
Date of Service May 07, 2022 Assessment & Plan (1) Status post lumbar surgery: Plan (1) Status post lumbar surgery: (2) Neurogenic claudication due to lumbar spinal stenosis: Post op day# 2 S/P L3-S1 decompression and fusion by Dr Jerrica DA SILVA#400ml, follow-up hemoglobin fairly closer to baseline. PT OT/pain management/DVT prophylaxis per Ortho. Incentive spirometer. Patient reports pain under control and is working with physical therapy. #. ARNULFO over CKD stage III Patient's creatinine downtrending, s/p ivf. Pt to get BMP in 3-5 days upon discharge and have the results forwarded to his PCP. Pt made aware at bedside. #. Other chronic medical conditions: HTN, HLD, anemia, stroke, GERD, sleep apnea [does not use CPAP], dementia on donepezil, chronic BLE edema on home Lasix Continue with/resume home meds as and when appropriate. #. Chronic iron deficiency anemia, preop hemoglobin of 10.4, patient on oral iron and receives IV iron. 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 Patient does have a history of nonbleeding gastric ulcer on EGD and unremarkable colonoscopy. Continue with iron supplement. Get CBC in 1 week upon Discharge. #. History of TIA, on Xarelto, held for surgery, resume when cleared per orthospine. #. DVT prophylaxis: Per orthospine. Admission and Anticipated Discharge Date Admission Date: May 05, 2022 Subjective Patient seen and examined at bedside as a follow-up of L3-S1 decompression and fusion by Dr. Becerril on 05/05/2022 for neurogenic claudication due to lumbar spinal stenosis. Patient was lying in bed, on room air. Patient reports improvement in his RLE radicular pain and low back pain, pain under control at operative site, reports moving bowel, reports feeling better, denies headache or dizziness or sore throat or fever or chills or other review of symptoms. Patient reports eating good. Physical Exam Physical Exam: GENERAL: Alert and oriented x3. NAD, on RA. HEENT: No pallor, no icterus. Pupils equal, round and reactive to light. Oral mucosa moist. NECK: No JVD, no neck masses. HEART: S1 and S2 heard. Regular rate and rhythm. No murmur, no gallop. RESPIRATORY SYSTEM: Normal AP diameter. No accessory muscle use. No wheezing, no crackles. ABDOMEN: Soft, bowel sounds present, nontender, no distention. CENTRAL NERVOUS SYSTEM: No facial droop. Speech is clear. Obeys simple commands. Moves extremities. EXTREMITIES: No edema, no erythema seen. Low back with clean dressing, COLLIN drain with some serosanguineous collection noted. Results & Data Results & Data ([facility]) Vital Signs (Past 12 Hours) Vital Signs Temp Pulse Pulse Resp BP BP Pulse Ox 05/07/22 12:58 36.7 C 62 65 16 157/67 H 146/73 H 94 05/07/22 08:05 36.7 C 62 16 157/67 H 94 O2 Del Method 05/07/22 12:58 05/07/22 08:05 Room Air
== END 2022-05-07 17:12 | disposition home or self-care (01) | DRG 454 ==
LOC: ASU 10:41 → 3E 14:48